=== PATIENT | male | born 1975 | race Caucasian/White ===

== ENCOUNTER → 2021-01-06 | Outpatient (CLI) | payer BC | LOC: CARD 08:35 | PROVIDERS: ATTEND Internal Medicine Cardiovascular Disease | DX: R00.2 Palpitations (principal) | CPT/HCPCS: 93306 ==

== ENCOUNTER → 2021-01-10 | Outpatient (CLI) | payer BC | LOC: CARD 13:32 | PROVIDERS: ATTEND Internal Medicine Cardiovascular Disease | DX: R00.2 Palpitations (principal) | CPT/HCPCS: 93351 ==

== ENCOUNTER 2022-09-04 19:22 | Outpatient (CLI) | payer BC | END 2022-09-05 06:43 | disposition home or self-care (01) | LOC: SLEEP 19:22 | PROVIDERS: ATTEND Otolaryngology Otolaryngology/Facial Plastic Surgery | DX: G47.33 Obstructive sleep apnea (adult) (pediatric) (principal) | CPT/HCPCS: 95810 ==

== ENCOUNTER 2023-01-18 13:11 | Outpatient (CLI) | payer BC | END 2023-01-18 13:40 | LOC: SLEEP 13:11 | PROVIDERS: ATTEND Otolaryngology Otolaryngology/Facial Plastic Surgery | DX: G47.33 Obstructive sleep apnea (adult) (pediatric) (principal); G47.10 Hypersomnia, unspecified; I10 Essential (primary) hypertension; R06.83 Snoring | CPT/HCPCS: G0399 ==